=== PATIENT | male | born 1975 | race African-American/Black ===

== ENCOUNTER 2018-10-05 18:28 | Emergency (ER) | payer BC ==
[~2018-10-05] VITALS: Ht 188 cm; Wt 93.0 kg
--- NOTE | ~2018-10-05 | EKG ---
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: [place] : 1975 Requested By: Lanette Willingham Order Number: [id number] MD: Adrian Mercado Measurements Intervals [place] Rate: 85 P: -2 UT: 156 QRS: 53 QRSD: 85 T: 22 QT: 361 QTc: 430 Interpretive Statements Sinus rhythm Compared to ECG 01/20/2016 13:21:57 Right ventricular hypertrophy now present Poor R-wave progression no longer present Left ventricular hypertrophy no longer present Electronically Signed On 10-07-2018 15:05:24 [employer]UCKING MA[employer]GER by Adrian Mercado [email or web address] <ELECTRONICALLY SIGNED> By: Adrian Mercado MD 10/07/18 1505 08 08 Adrian Mercado MD /SHANTI
[~2018-10-05 18:28] MED LIST: ZPAK PO
[2018-10-05] MEDS ORDERED: ASA5UEC PO (18:38)
[2018-10-05 19:42] LABS: ABSOLUTE NEUTROPHILS 4.7 thou/uL (1.4-8.2); BASOPHILS 1.2 % (0.0-2.0); EOSINOPHILS 5.3 % (0.0-3.0); HEMATOCRIT 39.5 % (42.0-52.0); HEMOGLOBIN 13.2 gm/dL (14.0-18.0); LYMPHOCYTES 31.3 % (24.0-44.0); MCH 27.2 pg (26.0-34.0); MCHC 33.3 g/dL (28.0-37.0); MCV 81.5 fL (80.0-100.0); MONOCYTES 7.7 % (1.0-8.0); PLATELET COUNT 235 thou/uL (150-400); POLYS 54.5 % (36.0-66.0); RBC 4.84 mil/uL (4.50-6.00); WBC 8.6 thou/uL (4.0-11.0)
[2018-10-05 19:50] LABS: CALCIUM 8.5 mg/dL (8.5-10.1); CREATININE 1.2 mg/dL (0.7-1.3); POTASSIUM 3.8 mmol/L (3.5-5.1)
[2018-10-05 19:54] LABS: PROTIME 10.1 Seconds (9.3-11.4)
[2018-10-05 19:56] LABS: ALBUMIN 3.4 g/dL (3.4-5.0); TOTAL BILIRUBIN 0.4 mg/dL (<0.1-1.0)
[2018-10-05] MEDS ORDERED: BACTRIM DS TAB1 EACH PO (20:16)
[2018-10-05] MEDS ORDERED: MOBIC7.5 MG PO (20:16)
[2018-10-05 22:04] VITALS: BP 118/76
== END 2018-10-05 22:06 | disposition home or self-care (01) ==
LOC: ER 18:28
PROVIDERS: Physician Assistant
DX: L02.416 Cutaneous abscess of left lower limb (principal); M25.551 Pain in right hip; Z87.891 Personal history of nicotine dependence; Z86.718 Personal history of other venous thrombosis and embolism; Z86.711 Personal history of pulmonary embolism